=== PATIENT | male | born 1955 | race Caucasian/White ===

== ENCOUNTER 2016-09-30 18:51 | Emergency (ER) | payer OTHER ==
[~2016-09-30 18:51] MED LIST: FLAG500TAB PO; LEVAQUIN750 MG PO; PERCOCET1 TA4 PO; PRIN10 PO; XANAX2 MG PO
== END 2016-09-30 19:00 | disposition home or self-care (01) ==
LOC: ER 18:51
DX: J32.9 Chronic sinusitis, unspecified (principal); I10 Essential (primary) hypertension; F32.9 Major depressive disorder, single episode, unspecified; F41.9 Anxiety disorder, unspecified; F17.200 Nicotine dependence, unspecified, uncomplicated; Z88.0 Allergy status to penicillin; Z88.5 Allergy status to narcotic agent; Z79.82 Long term (current) use of aspirin; Z79.2 Long term (current) use of antibiotics; Z79.899 Other long term (current) drug therapy
CPT/HCPCS: 99283